=== PATIENT | male | born 1980 | race Caucasian/White ===

== ENCOUNTER 2023-06-04 17:27 | Emergency (ER) | payer OTHER, SELFPAY ==
[2023-06-04 17:30] VITALS: BP 176/105; BMI 23.8
--- NOTE | 2023-06-04 19:56 | ED.GENMED ---
History of Present Illness
General
Chief Complaint: Back Pain
Source: patient
Time Seen by Provider: 06/04/23 18:28
Travel History
Have you had any contact with someone who has COVID-19?: No
Do you have any symptoms of coronavirus? Fever > 100 degrees, chills, cough, shortness of breath, sore throat, loss of taste or smell, muscle aches, or headache?: No
History of Present Illness
History of Present Illness:
42-year-old male presents emergency room complaining of pain in his upper thoracic lower neck region. Pain radiates down his right arm into his fifth and fourth digit. He has tingling in this distribution as well. The symptoms have been present
for couple weeks. He was seen by his primary care provider who recommended he see a manager department and ordered an MRI. MRI is not scheduled for another 3 to 4 weeks. Physiatry appointment is not scheduled until August. Patient began having symptoms
in his left arm over the past couple days as well. He also has been feeling tingling in his feet bilaterally. He does endorse anxiety but was concerned that he was having worsening cord compression. Patient did have a neck injury several years
ago that required close monitoring from a spine surgeon. He ultimately did not require any intervention.
Past History
Past History
ED Past Medical History: Psychiatric (Anxiety/panic) and Other (Neck neck pain with a herniated disc back in 2017 treated nonoperatively)
ED Past Surgical History: None
Social History
Tobacco: Non-smoker
Alcohol: Occasional
Family History
Family History: Other (Father with migraines)
Phy Exam
Physical Exam
Physical Exam:
General: Awake, Alert, Oriented X3. No acute distress.
Vitals: unremarkable
Head: Atraumatic
Eyes: Pupils equal, EOMI
Throat: Airway intact, no exudates
Neck: Trachea midline
Lungs: Clear and equal b/l
Heart: Regular rate, no murmurs
Abd: Soft, Nontender, No pulsatile mass
Neuro: Cranial nerves intact, muscle strength equal bilaterally, cerebellar exam normal. Muscle strength normal in the fingers, wrists bilaterally. No areas of numbness. Reflexes are normal in the Achilles and patellar reflex
Skin: Warm, dry, no rash
Extremities: pulses equal b/l, no edema
Course
Orders/Labs/Results
Orders:
Orders
06/04/23 19:20
Prednisone [Deltasone] 50 mg PO NOW STA
Cervical Spine 4 or 5 Vw [CR Cervical Spine 4 Or 5 Vw] Urgent
Comment:
Reason For Exam: neck pain, radiculopathy
Vital Signs
Initial and Last Documented VS:
Initial Vital Signs
Temp Pulse Resp BP Pulse Ox
98.5 F 84 16 176/105 98
06/04/23 17:30 06/04/23 17:30 06/04/23 17:30 06/04/23 17:30 06/04/23 17:30
Last Documented Vital Signs
Temp Pulse Resp BP Pulse Ox
98.5 F 87 17 124/78 99
06/04/23 17:30 06/04/23 20:12 06/04/23 20:12 06/04/23 20:12 06/04/23 20:12
MDM/Problems Addressed
Differential Diagnosis Includes:
Muscle strain, radiculopathy, neuropathy
MDM/Problems Addressed:
Patient has normal strength on exam now. Overall description does sound suspicious for radicular pattern in the right arm. However again he is no physical exam findings to suggest a more serious cord compression at this time. We will recommend
close outpatient follow-up. Will also initiate a course of oral steroids.
*Critical Care Note
Total Time (30-74mins, 75-104mins- exclusive of procedures): Not Applicable
ED Attending Note
-
Portions of this chart may have been created with voice recognition software.� Occasional wrong word or��sound alike� substitutions may have occurred due to the inherent limitations of voice recognition software.
Discharge Plan
Departure
Patient Disposition: Home (Routine Discharge)
Date of Disposition: 06/04/23
Time of Disposition: 20:01
Patient with high blood pressure during this ER visit?: No
Condition: Good
Discharge Problem:
Cervical radiculopathy
Instructions: Radiculopathy (DC), BLOOD PRESSURE
Prescriptions:
New
gabapentin 300 mg/6 mL (6 mL) solution
300 mg PO TID Qty: 240 0RF
Rx Instructions:
Take 300mg once a day for two days, then twice a day for 2 days, then 3 times a day
No Action
multivitamin [One-A-Day Essential] 1 EACH tablet
1 ea PO DAILY
alprazolam 0.5 MG tablet
0.5 mg PO PRN PRN (Reason: anxiety)
fluoxetine [Prozac] 10 mg Tablet
10 mg PO DAILY
zolpidem [Ambien] 10 mg Tablet
10 mg PO HS PRN (Reason: sleep)
benzonatate 100 mg capsule
100 mg PO Q6H PRN (Reason: cough) Qty: 20 0RF
Referrals:
Ted Simms MD [Active] -
Bandar Gabriel MD [Family Provider] -
Activity Restrictions/Additional Instructions:
Call Dr. Simms's office tomorrow morning for follow up appointment. ave sent a prescription for gabapentin (liquid) to help with the discomfort. Take it once a day for 2 days, then twice a day for two days, then three times a day.
Interventions
Interventions:
*Risk Screen - Suicide Last Done: 06/04/23 17:30
*General Assessment Last Done: 06/04/23 20:12
*Neglect/Abuse Screening Last Done: 06/04/23 17:30
ED- Fall Risk Assessment Last Done: 06/04/23 17:30
*ED COVID-19 Vaccine History Last Done: 06/04/23 17:30
*Nursing Disposition Last Done: 06/04/23 20:12
ED-Musculoskeletal Assessment Last Done: 06/04/23 19:37
Discharge Date and Time
Discharge Date/Time: 06/04/23 20:12
[2023-06-04 20:12] VITALS: BP 124/78
== END 2023-06-04 20:12 | disposition home or self-care (01) ==
LOC: EMR 17:27
PROVIDERS: EMERGENCY PHYSICIAN Emergency Medicine; FAMILY PHYSICIAN Family Medicine
DX: M54.12 Radiculopathy, cervical region (principal)
CPT/HCPCS: 99283; 72050

== ENCOUNTER 2023-10-31 22:22 | Emergency (ER) | payer OTHER, SELFPAY ==
[2023-10-31 22:24] VITALS: BP 172/87
[2023-10-31 23:07] VITALS: BMI 23.0
[2023-10-31 23:13] VITALS: BP 133/67
[2023-10-31 23:17] LABS: % Basophils 0.6 % (0-2); % Eosinophils 2.7 % (0-6); % Immature Granulocytes 0.2 % (0-0.5); % Lymphocytes 31.3 % (20.5-51.1); % Monocytes 5.8 % (1.7-9.3); % Neutrophils 59.4 % (42.2-75.2); Absolute Basophils 0.1 10^3/uL (0-0.2); Absolute Eosinophils 0.2 10^3/uL (0-0.7); Absolute Lymphocytes 2.8 10^3/uL (1.2-3.4); Absolute Monocytes 0.5 10^3/uL (0.1-0.6); Absolute Neutrophils 5.2 10^3/uL (1.4-6.5); Hematocrit 42.6 % (39.0-52.0); Hemoglobin 15.1 g/dL (13.0-18.0); Mean Corp Hgb Conc. 35.4 g/dL (33.0-37.0); Mean Corpuscular Volume 84.7 fL (80.0-94.0); Mean Platelet Volume 10.2 fL (7.4-10.4); Nucleated Red Blood Cells % 0 % (-); Platelet Count 252 10^3/uL (130-400); Red Blood Cell Count 5.03 10^6/uL (4.70-6.10); Red Cell Dist. Width 12.2 % (11.5-14.5); White Blood Cell Count 8.8 10^3/uL (4.8-10.8)
[2023-11-01] VITALS: BP 127/78
[2023-11-01 00:28] LABS: ALT (SGPT) 17 U/L (0-50); AST (SGOT) 24 U/L (17-59); Albumin 4.6 g/dl (3.5-5.0); Alkaline Phosphatase 82 U/L (38-126); Blood Urea Nitrogen 18 mg/dl (9-20); Calcium 10.1 mg/dl (8.4-10.2); Carbon Dioxide 22 mmol/L (22-30); Chloride 105 mmol/L (98-107); Estimated Creatinine Clearance 106 ml/min; Glucose 109 mg/dl (70-99); Potassium 3.7 mmol/L (3.5-5.1); Sodium 138 mmol/L (135-145); Total Bilirubin 0.5 mg/dl (0.2-1.3); Total Protein 7.1 g/dl (6.3-8.2); eGFR > 60.00
--- NOTE | 2023-11-01 00:40 | ED.GENMED ---
History of Present Illness
General
Chief Complaint: Heart Rate Problem
Source: patient
Exam Limitations: none
Time Seen by Provider: 10/31/23 23:36
Nursing documentation reviewed up to this point in time: agreed with
History of Present Illness
History of Present Illness:
Patient with history of anxiety disorder, who takes Xanax as needed, presents to ED secondary to recurrent episode of what he thought was anxiety attack, on approximately 40 minutes after eating [id number] vitamin Gummies. He started to feel
anxious, along with abdominal discomfort and nausea sensation. However, usually, when he has anxiety attack, he feels his heart racing with heart rate typically in the 140s to 180 range. Today, when he checked, his heart rate was in 50s and 60s.
When he noticed low heart rate, he became more concerned and his anxiety symptoms became worse. At the time of evaluation ED, patient states that he just feels fatigued. Denies palpitations. Denies fever or chills. Denies chest pain. Denies
nausea or vomiting. Denies previous history of similar symptoms. Patient has worn Holter monitor in the past along with normal stress echocardiogram, secondary to palpitations.
Past History
Past History
ED Past Medical History: Psychiatric (Anxiety/panic) and Other (Neck neck pain with a herniated disc back in 2017 treated nonoperatively)
ED Past Surgical History: None
Social History
Tobacco: Non-smoker
Alcohol: Occasional
Family History
Family History: Other (Father with migraines)
Review of Systems
Review of Systems
Allergies reviewed?: Yes
All Other Systems: ROS reviewed and negative except as documented in HPI and ROS
Constitutional: Reports no symptoms
EENT: Reports no symptoms
Respiratory: Reports no symptoms
Cardiac: Reports no symptoms
ABD/GI: Reports no symptoms
Musculoskeletal: Reports no symptoms
Skin: Reports no symptoms
Neurological: Reports no symptoms
Psychiatric: Reports anxiety
Phy Exam
Physical Exam
Physical Exam:
Physical Exam
General: no apparent distress, not acutely ill. afebrile
Head: nc/at. eomi
Neck: supple. no meningeal signs.
Heart: s1/s2 regular rate and rhythm, no murmur. equal radial pulses.
Lungs: no acute respiratory distress. clear bilaterally
Abdomen: normal bowel sounds. not tender.
Neuro: alert and oriented. no focal neurological deficits
Skin: no rash
Psychiatric: well kept. interactive and cooperative
Extremities: no edema. no calf tenderness.
Course
Orders/Labs/Results
Orders:
Orders
10/31/23 22:26
ECG [Electrocardiogram (*1)] Urgent
Reason for Study: Bradycardia / Tachycardia
EKG- Treatment ONCE
10/31/23 23:08
Cardiac Monitoring- Treatment ONCE
10/31/23 23:12
CMP [Comprehensive Metabolic Panel] Urgent
Complete Blood Count/With Diff Urgent
TSH Reflex To Free T4 Urgent
Comment: ADD ON
10/31/23 23:36
Add On- LAB Urgent
Tests Added?: TSH to reflex free T4
Abnormal Lab Results
10/31/23
23:12
Glucose 109 H mg/dl
(70-99)
10/31/23 23:12
10/31/23 23:12
Vital Signs
Initial and Last Documented VS:
Initial Vital Signs
Pulse Resp BP Pulse Ox
78 18 172/87 99
10/31/23 22:24 10/31/23 22:24 10/31/23 22:24 10/31/23 22:24
Last Documented Vital Signs
Pulse Resp BP Pulse Ox
72 12 127/78 96
11/01/23 00:30 11/01/23 00:30 11/01/23 00:00 11/01/23 00:30
MDM/Problems Addressed
MDM/Problems Addressed:
Patient with an unremarkable workup in ED, including blood work and EKG. Patient observed on monitor for extended period of time, without any arrhythmic events. History and exam consistent with likely possible reaction to supplement taken at home,
especially onset of symptoms along with abdominal discomfort. Advised that patient stop taking supplement and follow-up with PCP as needed as an outpatient. Patient expressed understanding, at time of discharge to the care of his father.
*Critical Care Note
Total Time (30-74mins, 75-104mins- exclusive of procedures): Not Applicable
ED Attending Note
-
Portions of this chart may have been created with voice recognition software.� Occasional wrong word or��sound alike� substitutions may have occurred due to the inherent limitations of voice recognition software.
Discharge Plan
Departure
Patient Disposition: Home (Routine Discharge)
Date of Disposition: 11/01/23
Time of Disposition: 00:41
Patient with high blood pressure during this ER visit?: Yes
Discharge Problem:
Medication adverse effect
Instructions: Adverse Drug Reactions, Adult ED
Prescriptions:
No Action
multivitamin [One-A-Day Essential] 1 EACH tablet
1 ea PO DAILY
alprazolam 0.5 MG tablet
0.5 mg PO PRN PRN (Reason: anxiety)
fluoxetine [Prozac] 10 mg Tablet
10 mg PO DAILY
zolpidem [Ambien] 10 mg Tablet
10 mg PO HS PRN (Reason: sleep)
benzonatate 100 mg capsule
100 mg PO Q6H PRN (Reason: cough) Qty: 20 0RF
gabapentin 300 mg/6 mL (6 mL) solution
300 mg PO TID Qty: 240 0RF
Rx Instructions:
Take 300mg once a day for two days, then twice a day for 2 days, then 3 times a day
Referrals:
Bandar Gabriel MD [Family Provider] -
Activity Restrictions/Additional Instructions:
As discussed, please follow-up with your primary care physician with any further concerns.
Interventions
Interventions:
*Risk Screen - Suicide Last Done: 10/31/23 22:24
*General Assessment Last Done: 10/31/23 22:24
*Neglect/Abuse Screening Last Done: 10/31/23 22:24
ED- Fall Risk Assessment Last Done: 10/31/23 23:20
*ED COVID-19 Vaccine History Last Done: 11/01/23 00:53
*Nursing Disposition Last Done: 11/01/23 00:53
ED- Cardiac Assessment Last Done: 10/31/23 23:20
ED- Pulmonary Assessment Last Done: 10/31/23 23:20
Discharge Date and Time
Discharge Date/Time: 11/01/23 00:53
Print Language: WOLOF
[2023-11-01 03:27] LABS: TSH Reflex To Free T4 3.21 uIU/ml (0.47-4.68)
== END 2023-11-01 00:53 | disposition home or self-care (01) ==
LOC: EMR 22:22
PROVIDERS: Emergency Medicine; EMERGENCY PHYSICIAN Emergency Medicine; FAMILY PHYSICIAN Family Medicine
DX: F41.9 Anxiety disorder, unspecified (principal); T50.905A Adverse effect of unspecified drugs, medicaments and biological substances, initial encounter; Y92.9 Unspecified place or not applicable
CPT/HCPCS: 99283; 80053; 84443; 85025; 93005

== ENCOUNTER 2025-02-10 14:56 | Emergency (ER) | payer OTHER, SELFPAY ==
[2025-02-10 15:09] VITALS: BP 141/88
--- NOTE | 2025-02-10 17:02 | ED.GENMED ---
History of Present Illness
General
Chief Complaint: Blood and Body Fluid Exposure
Time Seen by Provider: 02/10/25 16:24
History of Present Illness
History of Present Illness:
see MDM
Past History
Past History
ED Past Medical History: Psychiatric (Anxiety/panic) and Other (Neck neck pain with a herniated disc back in 2017 treated nonoperatively)
ED Past Surgical History: None
Social History
Tobacco: Non-smoker
Alcohol: Occasional
Family History
Family History: Other (Father with migraines)
Phy Exam
Physical Exam
Physical Exam:
GENERAL: Alert , in no apparent distress, comfortable at rest
HEAD: NCAT
CV: regular
lungs: clear
neuro: no focal deficits
SKIN: Warm and dry,
PSYCH: Normal and appropriate interaction. mildly anxious
Course
Orders/Labs/Results
Orders:
Orders
02/10/25 16:45
Rabies Immune Globulin/Pf [HyperRAB] 1,588 unit IM NOW STA
02/10/25 17:00
Rabies Vaccine (Pcec)/Pf [Rabavert Rabies Vacc W-Diluent] 2.5 unit IM .ONCE ONE
Vital Signs
Initial and Last Documented VS:
Initial Vital Signs
Temp Pulse Resp BP Pulse Ox
36.5 C 93 20 141/88 97
02/10/25 15:09 02/10/25 15:09 02/10/25 15:02/10/25 15:09 02/10/25 15:09
Last Documented Vital Signs
Temp Pulse Resp BP Pulse Ox
36.5 C 93 20 141/88 97
02/10/25 15:09 02/10/25 15:09 02/10/25 15:02/10/25 15:02/10/25 17:02
MDM/Problems Addressed
Differential Diagnosis Includes:
see MDM
MDM/Problems Addressed:
Note:
CHIEF COMPLAINT(S)
Potential exposure to rabies following contact with unknown animal fluids.
HISTORY OF PRESENT ILLNESS
The patient is a 44-year-old male who reports potential exposure to rabies. 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 The resulting impact caused fluids from the animal to
spray onto the patient, notably impacting his hair, face, and entering his mouth. The patient expressed concern regarding potential rabies exposure due to mucous membrane contact with the fluids. He was advised by his primary care physician to seek
emergency treatment.
The patient was unable to identify the species of the animal but suspects it could have been a raccoon, groundhog, or similar wildlife.
pt has no medical complaints at this time
PAST MEDICAL AND SURIGICAL HISTORY
The patient reports anxiety and panic attacks, which contribute to his current anxiety about rabies exposure.
PLAN
The plan is to initiate rabies prophylaxis as the patient expressed concern and presented under circumstances suggestive of a plausible exposure scenario. The regimen includes a series of rabies vaccinations and a weight-based immunoglobulin dose to
be administered today and follow-up doses on days 3, 7, and 14 at an infusion center.
The patients weight will be assessed to calculate the correct dose of rabies immune globulin. The patient was reassured regarding the safety and necessity of the treatment despite his concerns about side effects, which are expected to be localized
discomfort at the injection site.
DIFFERENTIAL DIAGNOSIS
The Differential Diagnosis includes, in no particular order and is not limited to:
1. Rabies exposure
2. Anxiety-induced symptoms
3. Post-exposure prophylaxis side effects
4. Allergic reaction to animal fluids
5. Schuster-Stephen Syndrome
6. Viral infection from animal contact
7. Surface infections/dermatitis due to exposure
8. Immune response to vaccination
9. Gastrointestinal upset due to anxiety or chemical exposure
10. Unidentified zoonotic transmission.
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 Patient is concerned about
possible rabies. He is unclear what the animal was. He was instructed by his family doctor to come seek treatment. Patient has anxiety at baseline. Risk benefits discussed about rabies series, given that I cannot identify whether it was a high
or low risk I did offer him the rabies vaccine which he accepts
*Pulse Oximetry
SaO2: 97
Oxygen Mode of Delivery: Room air
Patient hypoxic: no (97)
*Critical Care Note
Total Time (30-74mins, 75-104mins- exclusive of procedures): Not Applicable
ED Attending Note
-
Portions of this chart may have been created with voice recognition software.� Occasional wrong word or��sound alike� substitutions may have occurred due to the inherent limitations of voice recognition software.
Discharge Plan
Departure
Patient Disposition: Home (Routine Discharge)
Date of Disposition: 02/10/25
Time of Disposition: 17:17
Patient with high blood pressure during this ER visit?: Yes
Condition: Fair
Covid-19: Not Applicable
Discharge Problem:
Rabies exposure
Instructions: Rabies (DC)
Prescriptions:
New
rabies vacc,human diploid (PF) 2.5 unit recon soln
2.5 unit IM ONCE Qty: 3 0RF
Rx Instructions:
ON 02/14, 02/17, AND 02/24
No Action
multivitamin [One-A-Day Essential] 1 EACH tablet
1 ea PO DAILY
alprazolam 0.5 MG tablet
0.5 mg PO PRN PRN (Reason: anxiety)
fluoxetine [Prozac] 10 mg Tablet
10 mg PO DAILY
zolpidem [Ambien] 10 mg Tablet
10 mg PO HS PRN (Reason: sleep)
benzonatate 100 mg capsule
100 mg PO Q6H PRN (Reason: cough) Qty: 20 0RF
gabapentin 300 mg/6 mL (6 mL) solution
300 mg PO TID Qty: 240 0RF
Rx Instructions:
Take 300mg once a day for two days, then twice a day for 2 days, then 3 times a day
Referrals:
Bandar Gabriel MD [Family Provider, [facility]]
Stand Alone Forms: Rabies Vaccine Post Exp Dosing
Activity Restrictions/Additional Instructions:
YOU NEED TO RETURN TO THE ER ON 02/13 (OR YOU CAN WAIT UNTIL 02/14 IN THE MORNING AT THE INFUSION CENTER)
WELL 02/17, AND 02/24 FOR THE VACCINE SERIES
RETURN FOR ANY CONCERNS.
Interventions
Interventions:
*Risk Screen - Suicide Last Done: 02/10/25 15:09
*General Assessment Last Done: 02/10/25 15:09
*Neglect/Abuse Screening Last Done: 02/10/25 15:09
*Nursing Disposition Last Done: 02/10/25 17:26
ED-Skin Assessment Last Done: 02/10/25 16:45
Discharge Date and Time
Discharge Date/Time: 02/10/25 17:27
Print Language: ALBANIAN
[2025-02-10] MEDS: RABAVERT RABIES VACC W-DILUENT 2.5 UNIT IM (17:07)
== END 2025-02-10 17:27 | disposition home or self-care (01) ==
LOC: EMR 14:56
PROVIDERS: EMERGENCY PHYSICIAN Emergency Medicine; FAMILY PHYSICIAN Family Medicine
DX: Z20.3 Contact with and (suspected) exposure to rabies (principal); Z23 Encounter for immunization; F41.0 Panic disorder [episodic paroxysmal anxiety]
CPT/HCPCS: 99282; 90471; 96372; 90375; 90675; 96360

== ENCOUNTER 2025-02-24 14:56 | Outpatient (RCR) | payer OTHER, SELFPAY ==
[2025-02-14 09:53] VITALS: BP 119/81; BMI 23.8
[2025-02-14] MEDS: RABAVERT RABIES VACC W-DILUENT 2.5 UNIT IM (10:04)
[2025-02-17 15:32] VITALS: BP 155/95
[2025-02-17] MEDS: RABAVERT RABIES VACC W-DILUENT 2.5 UNIT IM (15:34)
[2025-02-24 15:10] VITALS: BP 148/80
[2025-02-24] MEDS: RABAVERT RABIES VACC W-DILUENT 2.5 UNIT IM (15:21)
== END 2025-02-25 10:04 | disposition home or self-care (01) ==
LOC: OID 14:56
PROVIDERS: ATTENDING PHYSICIAN Physician Assistant; FAMILY PHYSICIAN Family Medicine
DX: Z20.3 Contact with and (suspected) exposure to rabies (principal); Z23 Encounter for immunization
CPT/HCPCS: 90471; 90675